=== PATIENT | female | born 1945 | race Caucasian/White ===

== ENCOUNTER → 2024-11-09 15:03 | Outpatient (CLI) | payer MEDICARE, OTHER, SELFPAY ==
--- NOTE | 2024-11-12 08:41 | DI.NM.S_ITS ---
DATE OF SERVICE: 11/09/2024 EXERCISE TREADMILL STRESS TEST PROCEDURE: Exercise treadmill stress test without imaging. ORDERING PROVIDER: Napoleon Peña M.D. INDICATIONS: The patient is a 78-year-old female with atypical chest discomfort. FINDINGS: 1. The patient was able to exercise for 6 minutes 14 seconds on a standard [place] protocol, suggesting very good exercise capacity with an OMEGA of -24%, achieving 6.4 METs. 2. She had a normal heart rate and blood pressure response to exercise, achieving a maximum heart rate of 149 bpm (104% of her predicted maximum). 3. She had moderate exertional dyspnea but no chest discomfort or other anginal symptoms. 4. Her resting ECG shows sinus rhythm with normal ST segments. There are no significant ST-segment shifts or arrhythmias with stress. IMPRESSION: 1. Normal exercise treadmill stress test for ischemia. 2. Very good exercise capacity without angina or arrhythmias. SkipAna florian - RS/fn/MA doc#: [id number]/job#: [id number] dd: 11/10/2024 12:37:00 dt: 11/10/2024 16:37:00 DICTATING MD/COPIES TO: Artie García MD; Napoleon Peña M.D. COPIES MNE: SAMPSON;
== END ==
LOC: NUCM 15:05
PROVIDERS: Family Provider Specialist; PCP Student in an Organized Health Care Education/Training Program; Referring Provider Student in an Organized Health Care Education/Training Program; Visit Provider Student in an Organized Health Care Education/Training Program
DX: R07.89 Other chest pain (principal)
CPT/HCPCS: 93017